=== PATIENT | male | born 1960 | race Caucasian/White ===

== ENCOUNTER 2024-09-02 23:19 | Emergency (ER) | payer SELFPAY ==
[~2024-09-02] VITALS: Ht 177.8 cm; Wt 88.0 kg
[2024-09-02 23:34] VITALS: TEMP 98.2
[2024-09-03] MEDS: KETOROLAC TROMETHAMINE 30 MG/ML VIAL IVP ONE (00:57)
[2024-09-03] MEDS: SODIUM CHLORIDE 0.9% 1,000 ML IV ONE (00:58)
[2024-09-03 01:29] LABS: BASOPHILS % (AUTO) 0.1 % (0.0-2.0); EOSINOPHILS % (AUTO) 0 % (1.0-6.0); HEMATOCRIT 40.8 % (41-53); LYMPHOCYTES # (AUTO) 0.6 K/uL (1.0-4.8); LYMPHOCYTES % (AUTO) 6.8 % (22.0-44.0); MEAN CORPUSCULAR HEMOGLOBIN 31.8 pg (26.0-34.0); MEAN CORPUSCULAR HGB CONC 34.3 G/dL (31.0-37.0); MEAN CORPUSCULAR VOLUME 93 fL (80-100); MONOCYTES # (AUTO) 0.4 K/uL (0.1-1.0); NEUTROPHILS # (AUTO) 8.3 K/uL (1.8-7.7); PLATELET COUNT (AUTO) 197 K/uL (150-450); RED BLOOD CELL COUNT(AUTO) 4.39 MIL/uL (4.50-5.90); WHITE BLOOD COUNT (AUTO) 9.3 K/uL (4.5-11.0)
[2024-09-03 01:32] LABS: CREATININE 1.48 mg/dL (0.60-1.30); POTASSIUM 3.8 mmol/L (3.5-5.1)
[2024-09-03 01:38] LABS: NEUTROPHILS % (AUTO) 89.1 % (40.0-70.0)
[2024-09-03 01:42] LABS: LIPASE 25 U/L (16-77); TROPONIN I-HIGH SENSITIVITY 8 ng/L (<76)
[2024-09-03 02:05] LABS: APPEARANCE,URINE CLEAR (CLEAR); BILIRUBIN,URINE NEGATIVE (NEGATIVE); COLOR,URINE LIGHT YELLOW (YELLOW); GLUCOSE, URINE (UA) NEGATIVE (NEGATIVE); KETONES,URINE 40-60 mg/dL (NEGATIVE); LEUKOCYTE ESTERASE ,URINE NEGATIVE (NEGATIVE); NITRATE,URINE NEGATIVE (NEGATIVE); OCCULT BLOOD,URINE NEGATIVE (NEGATIVE); PH,URINE 5.5 (5.0-8.0); PROTEIN,URINE NEGATIVE (NEGATIVE); SPECIFIC GRAVITIY, URINE 1.018 (1.003-1.030); UROBILINOGEN,URINE <=1.0 mg/dL (<=1.0)
[2024-09-03 03:20] VITALS: BP 119/62; PULSE 70; RESP 17; O2SAT 100
[2024-09-03] MEDS ORDERED: TRAM50TA5 PO (05:09)
== END 2024-09-03 05:28 | disposition home or self-care (01) ==
LOC: EMS 23:28
DX: N20.0 Calculus of kidney (principal); R10.31 Right lower quadrant pain
CPT/HCPCS: 99285; 74176; 80048; 81003; 83690; 84484; 85025; 36415; 93005; 96374; 96361; J1885; J7030